=== PATIENT | male | born 1985 | race Caucasian/White ===

== ENCOUNTER 2017-11-06 10:51 | Emergency (ER) | payer OTHER ==
[~2017-11-06] VITALS: Ht 180.3 cm; Wt 124.7 kg
[2017-11-06 10:56] VITALS: Ht 180.3 cm; Wt 124.7 kg
[2017-11-06 13:04] VITALS: BP 146/101
== END 2017-11-06 13:11 | disposition home or self-care (01) ==
LOC: ED 10:51
DX: I16.0 Hypertensive urgency (principal)